=== PATIENT | male | born 1935 | race Caucasian/White ===

== ENCOUNTER 2024-08-20 22:17 | Emergency (ER) | payer OTHER, SELFPAY ==
[2024-08-20 22:21] VITALS: BP 132/70
[2024-08-20 23:38] VITALS: BMI 29.0
[2024-08-20 23:40] VITALS: BP 113/69
[2024-08-20 23:50] LABS: % Basophils 0.1 % (0-2); % Eosinophils 0.1 % (0-6); % Immature Granulocytes 0.7 % (0-0.5); % Lymphocytes 10.9 % (20.5-51.1); % Monocytes 17.8 % (1.7-9.3); % Neutrophils 70.4 % (42.2-75.2); Absolute Immature Granulocytes 0.1 10^3/uL (0-0.05); Absolute Monocytes 1.6 10^3/uL (0.1-0.6); Absolute Neutrophils 6.2 10^3/uL (1.4-6.5); Hematocrit 30.6 % (39.0-52.0); Hemoglobin 10.6 g/dL (13.0-18.0); Mean Corp Hgb Conc. 34.6 g/dL (33.0-37.0); Mean Corpuscular Volume 92.4 fL (80.0-94.0); Mean Platelet Volume 10.7 fL (7.4-10.4); Nucleated Red Blood Cells % 0 % (-); Platelet Count 165 10^3/uL (130-400); Red Blood Cell Count 3.31 10^6/uL (4.70-6.10); Red Cell Dist. Width 14.4 % (11.5-14.5); White Blood Cell Count 8.8 10^3/uL (4.8-10.8)
[2024-08-21] VITALS: BP 110/53
[2024-08-21 00:07] LABS: Albumin 3.9 g/dl (3.5-5.0); Alkaline Phosphatase 85 U/L (38-126); Blood Urea Nitrogen 40 mg/dl (9-20); Calcium 8.8 mg/dl (8.4-10.2); Carbon Dioxide 19 mmol/L (22-30); Chloride 104 mmol/L (98-107); Estimated Creatinine Clearance 37 ml/min; Glucose 104 mg/dl (70-99); Lipase 121 U/L (23-300); Potassium 5.5 mmol/L (3.5-5.1); Sodium 132 mmol/L (135-145); Total Bilirubin 1.3 mg/dl (0.2-1.3); Total Protein 6.7 g/dl (6.3-8.2); eGFR 53.17
[2024-08-21 00:15] LABS: ALT (SGPT) 2118 U/L (0-50); AST (SGOT) 583 U/L (17-59)
--- NOTE | 2024-08-21 00:34 | ED.GENMED ---
History of Present Illness
<OC Keene - Last Filed: 08/21/24 04:13>
General
Chief Complaint: Abnormal Lab Value
Source: patient and family
Exam Limitations: none
Time Seen by Provider: 08/21/24 00:10
Nursing documentation reviewed up to this point in time: agreed with
History of Present Illness
History of Present Illness:
Patient is a 88 yo M w/ PMH of CKD, HLD, CAD, a fib, and anemia presents to the ED w/ abnormal lab values. Pt was hospitalized in [place] for past 2 days. Discharged this morning, told to come to hospital immediately. Reports going to hospital in [place] due
to chest pain. Told it was MSK and given tramadol. Tramadol made him vomit so lab work was done and abnormal LFTs found. Pt developed running nose and cough since hospitalization. COVID & flu negative in [place]. Reports increased weakness and dizziness
x1 day. Denies abd pain, N/V/D/C, chest pain, palpitations, SOB, DELACRUZ, changes in urination, and muscle pain. Drinks alcohol occasionally. Denies smoking and drug use.
Past History
<OC Keene - Last Filed: 08/21/24 04:13>
Past History
ED Past Medical History: Arrthythmia and Hypercholesterolemia
ED Past Surgical History: Cardiac (pacemaker) and Other (Hernia repair)
Social History
Tobacco: Non-smoker
Alcohol: Occasional
Drug: None
Personal:
Living: with family
Employment: Retired
Family History
Family History: Other (Noncontributory)
Review of Systems
<OC Keene - Last Filed: 08/21/24 04:13>
Review of Systems
Constitutional: Reports fatigue; Denies fever or chills
EENT: Reports runny nose; Denies sore throat
Respiratory: Reports cough; Denies trouble breathing
Cardiac: Denies chest pain, palpitations or syncope
ABD/GI: Denies abdominal pain, nausea, vomiting, diarrhea or constipated
: Denies dysuria
Musculoskeletal: Denies joint pain, muscle pain or edema
Neurological: Reports dizzy and weakness; Denies headache
Phy Exam
<Elaine Billings [facility] - Last Filed: 08/21/24 04:13>
General Physical Exam
General Presentation: well appearing
General age: appears stated age
General Skin: warm
General Habitus: debilitated and elderly
General Mental: alert
ENT Exam
ENT Exam: normocephalic
Cardiovascular Exam
Cardiovascular Exam: regular rate/rhythm, no edema, no gallop and no murmur
Pulmonary Exam
Pulmonary Exam: lungs clear, no respiratory distress, no rales, chest non tender, no crackles, no rhonchi and no wheezing
Gastrointestinal Exam
Gastrointestinal Exam: normal bowel sounds, non tender, soft, no organomegaly, non distended and no masses
Neurological Exam
Neurological Exam: alert and other (slowed, labored speech )
Course
<Elaine Billings [facility] - Last Filed: 08/21/24 04:13>
Orders/Labs/Results
Orders:
Orders
08/20/24 23:21
CMP [Comprehensive Metabolic Panel] Urgent
Complete Blood Count/With Diff Urgent
Lipase Urgent
Comment: ADD ON
08/20/24 23:48
Add On- LAB Urgent
Tests Added?: lipase
08/21/24 00:58
Electrocardiogram (*1) Urgent
Reason for Study: Fatigue / Weakness
EKG- Treatment ONCE
Abnormal Lab Results
08/20/24
23:21
RBC 3.31 L 10^6/uL
(4.70-6.10)
Hgb 10.6 L g/dL
(13.0-18.0)
Hct 30.6 L %
(39.0-52.0)
MCH 32.0 H pg
(27.0-31.0)
MPV 10.7 H fL
(7.4-10.4)
Abs Immat Gran (auto) 0.1 H 10^3/uL
(0-0.05)
Absolute Lymphs (auto) 1.0 L 10^3/uL
(1.2-3.4)
Absolute Monos (auto) 1.6 H 10^3/uL
(0.1-0.6)
Immature Gran % 0.7 H %
(0-0.5)
Lymphocytes % 10.9 L %
(20.5-51.1)
Monocytes % 17.8 H %
(1.7-9.3)
Sodium 132 L mmol/L
(135-145)
Potassium 5.5 H mmol/L
(3.5-5.1)
Carbon Dioxide 19 L mmol/L
(22-30)
BUN 40 H mg/dl
(9-20)
Glucose 104 H mg/dl
(70-99)
AST 583 H* U/L
(17-59)
ALT 2118 H* U/L
(0-50)
08/20/24 23:21
08/20/24 23:21
Vital Signs
Initial and Last Documented VS:
Initial Vital Signs
Temp Pulse Resp BP Pulse Ox
99 F 98 18 132/70 98
08/20/24 22:21 08/20/24 22:21 08/20/24 22:21 08/20/24 22:21 08/20/24 22:21
Last Documented Vital Signs
Temp Pulse Resp BP Pulse Ox
99 F 92 18 120/79 93
08/20/24 22:21 08/21/24 03:15 08/21/24 03:15 08/21/24 03:00 08/21/24 03:15
<Wanda Bobo, DO - Last Filed: 08/21/24 06:23>
Orders/Labs/Results
Orders:
Orders
08/20/24 23:21
CMP [Comprehensive Metabolic Panel] Urgent
Complete Blood Count/With Diff Urgent
Lipase Urgent
Comment: ADD ON
08/20/24 23:48
Add On- LAB Urgent
Tests Added?: lipase
08/21/24 00:58
Electrocardiogram (*1) Urgent
Reason for Study: Fatigue / Weakness
EKG- Treatment ONCE
Abnormal Lab Results
08/20/24
23:21
RBC 3.31 L 10^6/uL
(4.70-6.10)
Hgb 10.6 L g/dL
(13.0-18.0)
Hct 30.6 L %
(39.0-52.0)
MCH 32.0 H pg
(27.0-31.0)
MPV 10.7 H fL
(7.4-10.4)
Abs Immat Gran (auto) 0.1 H 10^3/uL
(0-0.05)
Absolute Lymphs (auto) 1.0 L 10^3/uL
(1.2-3.4)
Absolute Monos (auto) 1.6 H 10^3/uL
(0.1-0.6)
Immature Gran % 0.7 H %
(0-0.5)
Lymphocytes % 10.9 L %
(20.5-51.1)
Monocytes % 17.8 H %
(1.7-9.3)
Sodium 132 L mmol/L
(135-145)
Potassium 5.5 H mmol/L
(3.5-5.1)
Carbon Dioxide 19 L mmol/L
(22-30)
BUN 40 H mg/dl
(9-20)
Glucose 104 H mg/dl
(70-99)
AST 583 H* U/L
(17-59)
ALT 2118 H* U/L
(0-50)
08/20/24 23:21
08/20/24 23:21
Vital Signs
Initial and Last Documented VS:
Initial Vital Signs
Temp Pulse Resp BP Pulse Ox
99 F 98 18 132/70 98
08/20/24 22:21 08/20/24 22:21 08/20/24 22:21 08/20/24 22:21 08/20/24 22:21
Last Documented Vital Signs
Temp Pulse Resp BP Pulse Ox
99 F 92 18 120/79 93
08/20/24 22:21 08/21/24 03:15 08/21/24 03:15 08/21/24 03:00 08/21/24 03:15
<OC Keene - Last Filed: 08/21/24 04:13>
*Critical Care Note
Total Time (30-74mins, 75-104mins- exclusive of procedures): Not Applicable
<Wanda Bobo DO - Last Filed: 08/21/24 06:23>
*Pulse Oximetry
Patient hypoxic: no
*EKG
Interpreted by ED Provider?: Yes
Interpretation: abnormal
Comparison EKG: changes noted (Atrial flutter with controlled ventricular response has replaced normal sinus rhythm July 16, 2023)
Rate: normal
Rhythm: atrial flutter
[place]: normal axis
Interval: normal QT interval
QRS Pattern: low voltage
Ischemia: no ischemia
*Floor Specialist Interpretation
Rate: normal
Rhythm: sinus and atrial flutter
ED Attending Note
<OC Keene - Last Filed: 08/21/24 04:13>
-
Portions of this chart may have been created with voice recognition software.� Occasional wrong word or��sound alike� substitutions may have occurred due to the inherent limitations of voice recognition software.
<Wanda Bobo DO - Last Filed: 08/21/24 06:23>
ED Attending Note
Patient seen and examined by attending physician: Yes
I performed the substantive portion of visit, reviewed & personally made and approve the management plan that is documented in note by myself or ROSENDA.: Yes
ED Attending Note:
This is an 88-year-old gentleman with history of PAF maintained on Eliquis, pacemaker, hypertension, hyperlipidemia who was vacationing, [facility] last week where he presented to an ER Thursday night, August 17 with complaints of
generalized upper chest pain. Cardiac workup unremarkable, troponins were negative, diagnosed with chest wall pain and he does admit to weight lifting the day prior. He was given a dose of tramadol and shortly after this developed intractable
nausea and vomiting. He states he remained in the ED received IV fluids, multiple doses of different antiemetics, vomiting eventually resolved the following morning. He was admitted to the hospital due to intractable vomiting, hypotension
requiring resuscitation.
Initial labs revealed acute kidney injury with elevated creatinine, hyponatremia, normal LFTs but the following day was noted to have markedly elevated LFTs in the high 2000's. Normal alkaline phosphatase, normal bilirubin and he continued to have
no abdominal pain, no further chest pain.
Renal ultrasound was unremarkable, CT abdomen pelvis showed unremarkable liver. Thickened gallbladder wall but no evidence of pericholecystic fluid nor stones.
He was discharged Thursday morning the as he had a planned flight to return home to this area. According to records from [facility], LFTs were improving and renal function improving with creatinine of 1.6.
Discharged to home with recommendation to follow-up with PCP and to follow-up with GI.
Upon returning home he presents to the ED for further evaluation. He continues to have no abdominal pain, no nausea nor vomiting, no chest pain.
He does admit to poor oral intake while he was at the hospital stating the food was terrible. Currently thirsty and drinking water well.
GENERAL: 88-year-old gentleman appears his stated age, bright alert, pleasant, appears in no acute distress. Accompanied by his and son.
EYE: pupils equal and reactive. anicteric
NECK: Supple, nontender, no meningismus, no significant adenopathy.
ENT: posterior pharynx is clear, oral mucosa is minimally dry. TM clear b/l, nares patent.
CARDIAC: Regular rate and rhythm. no murmur.
LUNGS: Clear breath sounds bilaterally, no acute respiratory distress, no wheezes/rales/rhonchi
ABDOMEN: Soft, nondistended, without focal tenderness, no r/g, no cvat. normoactive BS.
NEUROLOGICAL: Alert and oriented x3, no focal neuro deficits. Gait is wilson and steady. Mild resting tremor of mandible, chronic and unchanged.
SKIN: Warm and dry, normal color, no rash. There is a Tegaderm dressing right forearm as well as left forearm. Resolving dark purple ecchymotic patch right medial upper arm.
MUSCULOSKELETAL: No C/C/E. peripheral pulses are full and equal b/l. No palpable tenderness.
PSYCH: Normal and appropriate interaction.
Patient presents from recent hospitalization in [facility] after suffering chest wall deemed to be musculoskeletal in nature with subsequent nausea and vomiting, acute kidney injury thought to be related to a dose of tramadol.
Significant/intractable nausea and vomiting with resultant hypotension, acute kidney injury, acute transaminitis thought to be shock liver, requiring IV fluid resuscitation.
LFTs, renal function, hyponatremia all improving upon discharge the morning of August 20.
Creatinine continues to improve from 1.6 to now 1.3. LFTs improving from earlier this morning as well.
Overall appears well, tolerating oral fluids well, ambulatory to and from the bathroom with steady unaided gait.
He continues to have no abdominal pain, no chest pain.
At this point no indication for acute hospitalization. Would recommend he remain well-hydrated over the next several days with plan for prompt follow-up with PCP this week to recheck labs and consider GI evaluation if needed.
Return precautions discussed.
Discharge Plan
Departure
Patient Disposition: Home (Routine Discharge)
Date of Disposition: 08/21/24
Time of Disposition: 02:47
Patient with high blood pressure during this ER visit?: No
Condition: Good
Discharge Problem:
acute transaminitis, GAIL-resolving
Instructions: Dehydration, Adult (DC), Liver Function Test
Prescriptions:
No Action
multivitamin Tablet
1 tab PO DAILY
pravastatin 40 mg tablet
40 mg PO HS
aspirin 81 mg Tablet,Delayed Release (Dr/Ec)
81 mg PO DAILY
docusate sodium 100 mg Capsule
100 mg PO BID
finasteride 5 mg tablet
5 mg PO DAILY
Eliquis 5 mg tablet
5 mg PO BID
propranolol 80 mg tablet
160 mg PO DAILY
dexamethasone 6 mg tablet
6 mg PO DAILY Qty: 8 0RF
Referrals:
Logan Loera DO [Family Provider] - Follow up in 2-3 days
Interventions
Interventions:
*Risk Screen - Suicide Last Done: 08/20/24 22:21
*General Assessment Last Done: 08/20/24 22:21
*Neglect/Abuse Screening Last Done: 08/20/24 22:21
ED- Fall Risk Assessment Last Done: 08/21/24 00:06
*ED COVID-19 Vaccine History Last Done: 08/20/24 22:21
*Nursing Disposition Last Done: 08/21/24 03:45
Discharge Date and Time
Discharge Date/Time: 08/21/24 03:46
Print Language: JAPANESE
[2024-08-21 01:00] VITALS: BP 112/70
--- NOTE | 2024-08-21 01:09 | EDRN ---
Patient ambulated into the restroom and back in bed with minimal assistance, Dr. Bobo saw patient and is working on getting records from other hospital, wants patient to drink water, provided patient with water.
[2024-08-21 02:00] VITALS: BP 143/79
--- NOTE | 2024-08-21 02:43 | EDRN ---
Patient ambulated to the restroom and back in bed resting comfortably, Dr. Bobo in at bedside going over results and plan.
[2024-08-21 03:00] VITALS: BP 120/79
== END 2024-08-21 03:46 | disposition home or self-care (01) ==
LOC: EMR 22:17
PROVIDERS: EMERGENCY PHYSICIAN Emergency Medicine; FAMILY PHYSICIAN Family Medicine
DX: R74.01 Elevation of levels of liver transaminase levels (principal); I12.9 Hypertensive chronic kidney disease with stage 1 through stage 4 chronic kidney disease, or unspecified chronic kidney disease; N18.9 Chronic kidney disease, unspecified; N17.9 Acute kidney failure, unspecified; E78.00 Pure hypercholesterolemia, unspecified; I25.10 Atherosclerotic heart disease of native coronary artery without angina pectoris; I48.91 Unspecified atrial fibrillation; Z95.0 Presence of cardiac pacemaker; Z79.01 Long term (current) use of anticoagulants
CPT/HCPCS: 99284; 80053; 83690; 85025; 93005

== ENCOUNTER → 2024-08-23 14:11 | Outpatient (REF) | payer OTHER, SELFPAY | LOC: MRI 14:11 | PROVIDERS: ATTENDING PHYSICIAN Physical Medicine & Rehabilitation; FAMILY PHYSICIAN Family Medicine | DX: M54.16 Radiculopathy, lumbar region (principal) | CPT/HCPCS: 72148 ==